=== PATIENT | female | born 1950 | race Caucasian/White ===

== ENCOUNTER → 2016-12-22 | Outpatient (CLI) | payer MEDICARE, OTHER ==
[2015-05-05 18:51] VITALS: BP 133/80
[~2016-12-22] MED LIST: ALBU18HF IH; ALLO100T PO; AMIODARONE PO; ASPI-482 PO; DILT180C29 PO; DRON400T PO; FLEC100T PO; FLUO40CA2 PO; FLUT1DIS3 IH; FURO20TA3 PO; HYDR-2679 PO; HYDR25TA9 PO; INDO75CA3 PO; LEVO50TA5 PO; LORA10TA3 PO; LOSA100T6 PO; PRAV80TA2 PO; RIVA10TA PO; TRIAMCINOLONE INH; XOPENEX0.63 MG/3 NEB
--- NOTE | 2016-12-22 14:08 | RAD ---
CT lumbar spine without contrast 12/22/2016 Clinical indication: Lower back pain. No known injury. Comparison: None. Technique: Multiple CT images of the lumbar spine without contrast. Coronal and sagittal reformations were obtained. PQRS Compliance Statement: One or more of the following individualized dose reduction techniques were utilized for this examination: 1. Automated exposure control 2. Adjustment of the mA and/or kV according to patient size 3. Use of iterative reconstruction technique Findings Lumbar spine: There are 5 nonrib-bearing vertebral bodies with the first considered L1 for the purposes of this dictation. There is 2 mm of retrolisthesis L3 on L4 and L5 on S1. Otherwise normal lumbar alignment. Vertebral body heights are maintained. There is multilevel lumbar disc degeneration greatest to moderate degree at L3-L4 with disc space narrowing, vacuum disc phenomenon and marginal osteophyte formation. Mild disc degeneration at L4-L5 with disc space narrowing, back and disc phenomenon and marginal osteophyte formation. Very mild disc degeneration at L5-S1. The paraspinous soft tissue tissues are unremarkable. Moderate calcified atheromatous disease of the visualized abdominal aorta. Segmental analysis: At T12-L1, no significant spinal canal or neuroforaminal narrowing. At L1-L2, no significant spinal canal or neural foraminal narrowing. At L2-L3, no significant spinal canal or neuroforaminal narrowing. At L3-L4, grade 1 retrolisthesis posterior disc osteophyte complex and mild facet hypertrophy resulting in mild spinal canal and mild bilateral neural foraminal narrowing. At L4-L5 bilateral facet hypertrophy and posterior disc bulging resulting in moderate spinal canal and moderate bilateral neural foraminal narrowing. At L5-S1, posterior disc bulging and bilateral facet hypertrophy resulting in mild spinal canal and moderate bilateral neural foraminal narrowing. Impression: 1. 2 mm retrolisthesis L3 on L4 and L5 on S1. 2. Disc degeneration and facet hypertrophy resulting in multilevel neural foraminal narrowing, to a moderate degree, bilaterally at L4-L5 and L5-S1. 3. Degenerative spinal canal narrowing estimated at moderate degree at L4-L5 and L5-S1. If clinically indicated, degree of bile canal and neural foraminal narrowing spinal canal and neural foraminal narrowing could be better evaluated by MR.
== END | disposition home or self-care (01) ==
LOC: CT 11:02
PROVIDERS: ATTEND Family Medicine
DX: M51.36 Other intervertebral disc degeneration, lumbar region (principal); M54.17 Radiculopathy, lumbosacral region
CPT/HCPCS: 72131

== ENCOUNTER → 2017-02-01 | Outpatient (CLI) | payer MEDICARE, OTHER ==
[2015-05-05 18:51] VITALS: BP 133/80
[~2017-02-01] MED LIST changes: +BUPIVACAINE MPF 0.25% 10 ML VIAL. ONE; +LIDOCAINE 1% PF 30 ML VIAL. ONE; +methylPREDNISolone ACETATE 80 MG/ML VIAL. ONE
== END | disposition home or self-care (01) ==
LOC: SURG 12:34
PROVIDERS: ATTEND Anesthesiology
DX: M47.816 Spondylosis without myelopathy or radiculopathy, lumbar region (principal); E78.00 Pure hypercholesterolemia, unspecified; G47.30 Sleep apnea, unspecified; M10.9 Gout, unspecified; Z87.39 Personal history of other diseases of the musculoskeletal system and connective tissue; Z96.653 Presence of artificial knee joint, bilateral; Z86.39 Personal history of other endocrine, nutritional and metabolic disease
CPT/HCPCS: 64493; 64494; J1040; J2001; J3490

== ENCOUNTER → 2017-02-22 | Outpatient (CLI) | payer MEDICARE, OTHER ==
[2015-05-05 18:51] VITALS: BP 133/80
[~2017-02-22] MED LIST changes: -BUPIVACAINE MPF 0.25% 10 ML VIAL. ONE; -LIDOCAINE 1% PF 30 ML VIAL. ONE; -methylPREDNISolone ACETATE 80 MG/ML VIAL. ONE
[2017-02-22 12:21] LABS: ALBUMIN 3.3 g/dL (3.4-5.0); ALBUMIN/GLOBULIN RATIO 0.8 (1.0-1.7); CALCIUM 8.6 mg/dL (8.5-10.1); CREATININE 1.4 mg/dL (0.6-1.0); GFR 37.5; TOTAL BILIRUBIN 0.4 mg/dL (0.2-1.0); TOTAL PROTEIN 7.4 g/dL (6.4-8.2)
[2017-02-22 12:27] LABS: POTASSIUM 2.8 mmol/L (3.5-5.1)
== END | disposition home or self-care (01) ==
LOC: LAB 11:39
PROVIDERS: ATTEND Nurse Practitioner
DX: E78.5 Hyperlipidemia, unspecified (principal)
CPT/HCPCS: 36415; 80053; 80061

== ENCOUNTER → 2017-02-23 | Outpatient (CLI) | payer MEDICARE, OTHER ==
[2015-05-05 18:51] VITALS: BP 133/80
[2017-02-23 11:01] LABS: CALCIUM 9.3 mg/dL (8.5-10.1); CREATININE 1.5 mg/dL (0.6-1.0); GFR 34.6; POTASSIUM 3.1 mmol/L (3.5-5.1)
== END | disposition home or self-care (01) ==
LOC: LAB 10:12
PROVIDERS: ATTEND Nurse Practitioner
DX: E87.6 Hypokalemia (principal)
CPT/HCPCS: 36415; 80048

== ENCOUNTER → 2017-02-24 | Outpatient (CLI) | payer MEDICARE, OTHER ==
[2015-05-05 18:51] VITALS: BP 133/80
[2017-02-24 10:33] LABS: CALCIUM 9.6 mg/dL (8.5-10.1); CREATININE 1.6 mg/dL (0.6-1.0); POTASSIUM 3.3 mmol/L (3.5-5.1)
[2017-02-24 10:35] LABS: GFR 32.2
== END | disposition home or self-care (01) ==
LOC: LAB 09:15
PROVIDERS: ATTEND Nurse Practitioner
DX: E87.5 Hyperkalemia (principal)
CPT/HCPCS: 36415; 80048

== ENCOUNTER → 2017-03-03 | Outpatient (CLI) | payer MEDICARE, OTHER ==
[2015-05-05 18:51] VITALS: BP 133/80
[2017-03-03 16:20] LABS: CALCIUM 8.8 mg/dL (8.5-10.1); CREATININE 1.4 mg/dL (0.6-1.0); GFR 37.5; POTASSIUM 3.3 mmol/L (3.5-5.1)
== END | disposition home or self-care (01) ==
LOC: LAB 11:20
PROVIDERS: ATTEND Nurse Practitioner
DX: R60.0 Localized edema (principal)
CPT/HCPCS: 36415; 80048

== ENCOUNTER → 2017-03-15 | Outpatient (CLI) | payer MEDICARE, OTHER ==
[2015-05-05 18:51] VITALS: BP 133/80
[~2017-03-15] MED LIST changes: +BUPIVACAINE MPF 0.25% 10 ML VIAL. ONE; +LIDOCAINE 1% PF 30 ML VIAL. ONE; +methylPREDNISolone ACETATE 80 MG/ML VIAL. ONE
== END | disposition home or self-care (01) ==
LOC: SURG 13:06
PROVIDERS: ATTEND Anesthesiology
DX: M47.816 Spondylosis without myelopathy or radiculopathy, lumbar region (principal); I10 Essential (primary) hypertension; I48.91 Unspecified atrial fibrillation; M19.91 Primary osteoarthritis, unspecified site; E07.9 Disorder of thyroid, unspecified; Z96.653 Presence of artificial knee joint, bilateral
CPT/HCPCS: 64493; 64494; J1040; J2001; J3490

== ENCOUNTER → 2017-03-25 | Outpatient (CLI) | payer MEDICARE, OTHER ==
[2015-05-05 18:51] VITALS: BP 133/80
[~2017-03-25] MED LIST changes: -BUPIVACAINE MPF 0.25% 10 ML VIAL. ONE; -LIDOCAINE 1% PF 30 ML VIAL. ONE; -methylPREDNISolone ACETATE 80 MG/ML VIAL. ONE
[2017-03-26 02:06] LABS: RHEUMATOID FACTOR 10.5 IU/mL (0.0-13.9)
[2017-03-28 18:06] LABS: ANA INTERP Negative (.)
[2017-03-29 11:13] LABS: ALBUM 3.6 g/dL (2.9-4.4); ALPHA 1 0.2 g/dL (0.0-0.4); ALPHA 2 1.1 g/dL (0.4-1.0); GAMMA 1.1 g/dL (0.4-1.8); SPEP AG RATIO 1.1 (0.7-1.7)
== END | disposition home or self-care (01) ==
LOC: LAB 15:04
DX: G60.9 Hereditary and idiopathic neuropathy, unspecified (principal)
CPT/HCPCS: 36415; 82607; 82746; 84165; 86334; 86431

== ENCOUNTER → 2017-05-13 | Outpatient (CLI) | payer MEDICARE, OTHER ==
[2015-05-05 18:51] VITALS: BP 133/80
[~2017-05-13] MED LIST changes: +ATROPINE 1 MG/10 ML DISP.SYRIN ONE; +BUPIVACAINE MPF 0.25% 10 ML VIAL. ONE; +DEXAMETHASONE SOD PHOS 4 MG/ML VIAL ONE; +EPINEPHrine SYRINGE 1 MG/10 ML SYRINGE ONE; +FLUMAZENIL 0.5 MG/5 ML VIAL. IV ONE; +GLUCAGON,HUMAN RECOMBINANT 1 MG KIT. ONE; +IV RINGERS SOLUTION,LACTATED 1,000 ML IV ONE; +LIDOCAINE 2% PF Vial for OR 5 ML VIAL. ONE; +MIDAZOLAM HCL PF 2 MG/2 ML VIAL. ONE; +NALOXONE 0.4 MG/ML VIAL. ONE; +diphenhydrAMINE 50 MG/ML VIAL ONE
== END | disposition home or self-care (01) ==
LOC: SURG 07:22
PROVIDERS: ATTEND Anesthesiology Pain Medicine
DX: M47.816 Spondylosis without myelopathy or radiculopathy, lumbar region (principal); I10 Essential (primary) hypertension; E03.9 Hypothyroidism, unspecified; Z96.659 Presence of unspecified artificial knee joint
CPT/HCPCS: 64635; 64636; J1100; J2250; J3010; J3490; J7120; 99152; J0171; J0461; J1200; J1610; J2310; J2001

== ENCOUNTER → 2017-06-09 | Outpatient (CLI) | payer MEDICARE, OTHER ==
[2015-05-05 18:51] VITALS: BP 133/80
[~2017-06-09] MED LIST changes: -ATROPINE 1 MG/10 ML DISP.SYRIN ONE; -EPINEPHrine SYRINGE 1 MG/10 ML SYRINGE ONE; -FLUMAZENIL 0.5 MG/5 ML VIAL. IV ONE; -GLUCAGON,HUMAN RECOMBINANT 1 MG KIT. ONE; +LIDOCAINE 1% PF 30 ML VIAL. ONE; -LIDOCAINE 2% PF Vial for OR 5 ML VIAL. ONE; -NALOXONE 0.4 MG/ML VIAL. ONE; -diphenhydrAMINE 50 MG/ML VIAL ONE
== END | disposition home or self-care (01) ==
LOC: SURG 07:40
PROVIDERS: ATTEND Anesthesiology Pain Medicine
DX: M12.88 Other specific arthropathies, not elsewhere classified, other specified site (principal); I11.0 Hypertensive heart disease with heart failure; I50.9 Heart failure, unspecified; E03.8 Other specified hypothyroidism; Z96.659 Presence of unspecified artificial knee joint; Z79.899 Other long term (current) drug therapy; E11.9 Type 2 diabetes mellitus without complications; I48.91 Unspecified atrial fibrillation; E78.00 Pure hypercholesterolemia, unspecified; G47.30 Sleep apnea, unspecified; M10.9 Gout, unspecified; M19.90 Unspecified osteoarthritis, unspecified site
CPT/HCPCS: 64635; 64636; 99213; J1100; J2001; J2250; J3010; J3490; J7120; 99152

== ENCOUNTER → 2017-06-10 | Outpatient (CLI) | payer MEDICARE, OTHER ==
[2015-05-05 18:51] VITALS: BP 133/80
[~2017-06-10] MED LIST changes: -BUPIVACAINE MPF 0.25% 10 ML VIAL. ONE; -DEXAMETHASONE SOD PHOS 4 MG/ML VIAL ONE; -IV RINGERS SOLUTION,LACTATED 1,000 ML IV ONE; -LIDOCAINE 1% PF 30 ML VIAL. ONE; -MIDAZOLAM HCL PF 2 MG/2 ML VIAL. ONE
[2017-06-10 12:16] LABS: CALCIUM 9.5 mg/dL (8.5-10.1); CREATININE 1.9 mg/dL (0.6-1.0); GFR 26.4
[2017-06-10 12:18] LABS: POTASSIUM 3.4 mmol/L (3.5-5.1)
== END | disposition home or self-care (01) ==
LOC: LAB 11:36
PROVIDERS: ATTEND Nurse Practitioner
DX: E87.6 Hypokalemia (principal); I10 Essential (primary) hypertension; E11.9 Type 2 diabetes mellitus without complications
CPT/HCPCS: 36415; 80048

== ENCOUNTER → 2017-06-23 | Outpatient (CLI) | payer MEDICARE, OTHER ==
[2015-05-05 18:51] VITALS: BP 133/80
== END | disposition home or self-care (01) ==
LOC: SURG 10:12
PROVIDERS: ATTEND Anesthesiology Pain Medicine
DX: M12.88 Other specific arthropathies, not elsewhere classified, other specified site (principal); I10 Essential (primary) hypertension
CPT/HCPCS: 99213

== ENCOUNTER → 2017-07-01 | Outpatient (CLI) | payer MEDICARE, OTHER ==
[2015-05-05 18:51] VITALS: BP 133/80
[2017-07-01 13:17] LABS: CALCIUM 9.1 mg/dL (8.5-10.1); CREATININE 1.7 mg/dL (0.6-1.0); POTASSIUM 3.5 mmol/L (3.5-5.1)
== END | disposition home or self-care (01) ==
LOC: LAB 12:02
PROVIDERS: ATTEND Nurse Practitioner
DX: I11.0 Hypertensive heart disease with heart failure (principal); I50.9 Heart failure, unspecified; Z72.0 Tobacco use
CPT/HCPCS: 36415; 80048

== ENCOUNTER → 2017-08-09 | Outpatient (CLI) | payer MEDICARE, OTHER ==
[2015-05-05 18:51] VITALS: BP 133/80
[~2017-08-09] MED LIST changes: +IOHEXOL 240 MG/ML 50ML VIAL. ONE
--- NOTE | 2017-08-09 12:56 | RAD ---
EXAM: Abdomen and pelvis CT without intravenous contrast. HISTORY: Hernia. TECHNIQUE: Computed tomographic images of the abdomen and pelvis were obtained without intravenous contrast. Multiplanar reformatting was performed. *One or more of the following individualized dose reduction techniques were utilized for this examination: 1. Automated exposure control. 2. Adjustment of the mA and/or kV according to patient size. 3. Use of iterative reconstruction technique. COMPARISON: None. FINDINGS: Evaluation of the lower thorax demonstrates bilateral posterior dependent and basilar atelectasis. There is a 2 mm nodular opacity within the lingula, benign in appearance. There is a 2 mm nodular opacity within the right lung base, also benign in appearance. There is callus location of the aortic valve and coronary arteries. There is mild hepatomegaly. There is cholelithiasis. The pancreas, spleen and adrenal glands are unremarkable. The kidneys are unremarkable. The urinary bladder is unremarkable. There is an enlarged uterus containing multiple calcifications likely due to fibroids. There is a mass along the right lateral aspect of the uterine fundus which appears separate from the ovary and is likely a subserosal fibroid measuring approximately 5.0 cm. There is sigmoid diverticulosis. There is aortobiiliac atherosclerosis. No pathologically enlarged lymph node is seen. There are degenerative changes throughout the lumbar spine. No suspicious osseous lesion is seen. No hernia is seen. IMPRESSION: 1. No evidence of an abdominal or pelvic hernia. 2. Enlarged uterus containing multiple calcifications likely due to degenerating fibroids. There is a 5.0 cm mass along the right lateral uterine fundus likely due to a subserosal fibroid. This can be better assessed with a pelvic sonogram. 3. Sigmoid diverticulosis. 4. Cholelithiasis. 5. Mild hepatomegaly. Electronically signed by: Lili Cohen MD (08/09/2017 12:53 PM) [place] [id number]
== END | disposition home or self-care (01) ==
LOC: CT 10:13
PROVIDERS: ATTEND Nurse Practitioner Family
DX: K57.30 Diverticulosis of large intestine without perforation or abscess without bleeding (principal); K80.20 Calculus of gallbladder without cholecystitis without obstruction; N85.2 Hypertrophy of uterus; R16.0 Hepatomegaly, not elsewhere classified
CPT/HCPCS: 74176; Q9966

== ENCOUNTER → 2017-11-25 | Outpatient (CLI) | payer MEDICARE, OTHER ==
[2015-05-05 18:51] VITALS: BP 133/80
[~2017-11-25] MED LIST changes: -IOHEXOL 240 MG/ML 50ML VIAL. ONE
--- NOTE | 2017-11-25 22:28 | RAD ---
EXAM: Left elbow, 3 views. HISTORY: Pain. COMPARISON: None. FINDINGS: 3 views of the left elbow are obtained. There is no acute fracture, dislocation or subluxation. There is spurring along the trochlea. There is no elbow effusion. There is soft tissue swelling overlying the olecranon. IMPRESSION: 1. Mild left elbow osteoarthritis. 2. Soft tissue swelling overlying the olecranon. The imaging appearance favors olecranon bursitis. Electronically signed by: Lili Cohen MD (11/25/2017 4:04 PM) [facility]
== END | disposition home or self-care (01) ==
LOC: DXRAD 09:51
PROVIDERS: ATTEND Orthopaedic Surgery Sports Medicine
DX: M19.022 Primary osteoarthritis, left elbow (principal); M79.89 Other specified soft tissue disorders; I11.0 Hypertensive heart disease with heart failure; I50.9 Heart failure, unspecified; E78.5 Hyperlipidemia, unspecified; E78.00 Pure hypercholesterolemia, unspecified; E03.9 Hypothyroidism, unspecified
CPT/HCPCS: 73070

== ENCOUNTER 2018-11-13 16:56 | Emergency (ER) | payer MEDICARE, OTHER ==
[~2018-11-13] VITALS: Ht 167.6 cm; Wt 155.6 kg
[~2018-11-13 16:56] MED LIST changes: -ALBU18HF IH; +ALBU2.5V8 IH; +HYDR-2145 PO; -HYDR25TA9 PO; +LOSA100T14 PO; -LOSA100T6 PO
[2018-11-13] MEDS ORDERED: dilTIAZem 25 MG/5 ML VIAL IVP ONE (17:15)
[2018-11-13] MEDS ORDERED: IV NORMAL SALINE 1,000ML 1,000 ML IV SCH (17:15)
[2018-11-13 17:49] LABS: BASO % 1 % (0-3); EOS # 0.2 x10^3/uL (0.0-0.7); EOS % 4 % (0-3); HEMATOCRIT 44.9 % (36.0-47.0); HEMOGLOBIN 15.1 g/dL (12.0-15.5); LYMPH # 2.5 x10^3/uL (1.0-4.8); LYMPH % 39 % (24-48); MEAN CORPUSCULAR HEMOGLOBIN 30 pg (25-35); MEAN CORPUSCULAR HGB CONC 34 g/dL (31-37); MEAN CORPUSCULAR VOLUME 89 fL (79-100); MONO # 0.6 x10^3/uL (0.0-1.1); MONO % 9 % (0-9); NEUT # 3.1 x10^3uL (1.8-7.7); NEUT % 48 % (31-73); PLATELET COUNT 228 x10^3/uL (140-400); RED BLOOD COUNT 5.05 x10^6/uL (3.50-5.40); RED CELL DISTRIBUTION WIDTH 15.3 % (11.5-14.5); WHITE BLOOD COUNT 6.5 x10^3/uL (4.0-11.0)
--- NOTE | 2018-11-13 18:04 | PHYS DOC ---
Past History Past Medical History: A-Fib, Anxiety, Arthritis, Asthma, Depression, High Cholesterol, Hypertension, Other (TRUPTI MCCORMICK MD) Past Surgical History: Appendectomy, Knee Replacement, Other (TRUPTI MCCORMICK MD) Alcohol Use: Rarely Drug Use: None (TRUPTI MCCORMICK MD) Adult General Chief Complaint Chief Complaint: RAPID HEART RATE HPI HPI Patient is a 68 year old female who presents with palpitations. Patient was se nt to the emergency department from her primary physician's office after being found to have an abnormal EKG. Patient noted to have A. fib with RVR at Dr. Newton's office. Was sent to the emergency department for further evaluation. Denies chest pain or lightheadedness. Does admit to history of A. fib but states that this was resolved approximately 4-5 years ago with electri juan alberto cardioversion. States that she is on Xarelto daily but is not on any heart medications currently. Follows with Dr. Ontiveros of cardiology. Has not felt recently ill or short of breath. (TRUPTI MCCORMICK MD) Review of Systems Review of Systems Constitutional: Denies fever or chills [] Eyes: Denies change in visual acuity, redness, or eye pain [] HENT: Denies nasal congestion or sore throat [] Respiratory: Denies cough or shortness of breath [] Cardiovascular: Palpitations, denies chest pain or edema[] GI: Denies abdominal pain, nausea, vomiting, bloody stools or diarrhea [] : Denies dysuria or hematuria [] Musculoskeletal: Denies back pain or joint pain [] Integument: Denies rash or skin lesions [] Neurologic: Denies headache, focal weakness or sensory changes [] All other systems were reviewed and found to be within normal limits, except as documented in this note. (TRUPTI MCCORMICK MD) Current Medications Current Medications Current Medications Medications (Trade) Dose Ordered Sig/Ashish Start Time Stop Time Status Last Admin Dose Admin Diltiazem HCl (Cardizem Iv Push) 20 mg 1X ONCE 11/13/18 17:15 11/13/18 17:27 DC Sodium Chloride 1,000 ml @ 125 mls/hr Q8H 11/13/18 17:15 11/14/18 01:14 (TRUPTI MCCORMICK MD) Allergies Allergies Allergies Coded Allergies Type Severity Reaction Last Updated Verified No Known Drug Allergies 05/05/15 No (TRUPTI MCCORMICK MD) Physical Exam Physical Exam Constitutional: Well developed, well nourished, no acute distress, non-toxic appearance. [] HENT: Normocephalic, atraumatic, bilateral external ears normal, oropharynx moist, no oral exudates, nose normal. [] Eyes: PERRLA, EOMI, conjunctiva normal, no discharge. [] Neck: Normal range of motion, no tenderness, supple, no stridor. [] Cardiovascular: Tachycardia, irregular rhythm, no murmur[] Lungs & Thorax: Bilateral breath sounds clear to auscultation [] Abdomen: Bowel sounds normal, soft, no tenderness, no masses, no pulsatile masses. [] Skin: Warm, dry, no erythema, no rash. [] Back: No tenderness, no CVA tenderness. [] Extremities: No tenderness, no cyanosis, no clubbing, ROM intact, no edema. [] Neurologic: Alert and oriented X 3, normal motor function, normal sensory function, no focal deficits noted. [] (TRUPTI MCCORMICK MD) Current Patient Data Lab Results Laboratory Tests Test 11/13/18 17:27 White Blood Count 6.5 x10^3/uL (4.0-11.0) Red Blood Count 5.05 x10^6/uL (3.50-5.40) Hemoglobin 15.1 g/dL (12.0-15.5) Hematocrit 44.9 % (36.0-47.0) Mean Corpuscular Volume 89 fL (79-100) Mean Corpuscular Hemoglobin 30 pg (25-35) Mean Corpuscular Hemoglobin Concent 34 g/dL (31-37) Red Cell Distribution Width 15.3 % (11.5-14.5) H Platelet Count 228 x10^3/uL (140-400) Neutrophils (%) (Auto) 48 % (31-73) Lymphocytes (%) (Auto) 39 % (24-48) Monocytes (%) (Auto) 9 % (0-9) Eosinophils (%) (Auto) 4 % (0-3) H Basophils (%) (Auto) 1 % (0-3) Neutrophils # (Auto) 3.1 x10^3uL (1.8-7.7) Lymphocytes # (Auto) 2.5 x10^3/uL (1.0-4.8) Monocytes # (Auto) 0.6 x10^3/uL (0.0-1.1) Eosinophils # (Auto) 0.2 x10^3/uL (0.0-0.7) Basophils # (Auto) 0.0 x10^3/uL (0.0-0.2) (TRUPTI MCCORMICK MD) EKG EKG EKG #1 at 1710 interpreted by me: Rate 117, A. fib with rapid ventricular response, leftward axis, no acute ST/T-wave abnormalities present. EKG #2 at 1757 interpreted by me after administration of IV bolus of Cardizem: Heart rate 66, atrial fibrillation, tachycardia resolved, leftward axis, no acute ST/T-wave abnormalities present[] (TRUPTI MCCORMICK MD) Radiology/Procedures Radiology/Procedures One view AP chest x-ray interpreted by me: Cardiomegaly present, no pulmonary infiltrates or effusions[] (TRUPTI MCCORMICK MD) Course & Med Decision Making Course & Med Decision Making Pertinent Labs and Imaging studies reviewed. (See chart for details) Patient missed her dose 20 mg of IV Cardizem in the emergency department with achievement of rate control, however patient continues to have atrial fibrill ation at this time. Lab work is pending. Care of patient will be signed out to oncoming physician, Dr. Judge, at 0600.[] (TRUPTI MCCORMICK MD) Course & Med Decision Making Patient given IV Cardizem with controlled rate. Patient remains in A. fib. Patient home medications reviewed. Patient has inadvertently taken herself off of Coreg. She is scheduled to take 25 mg twice daily, but has not taken it for weeks. Patient's belief is that she is prescribed Coreg for blood pressure and that she no longer needed it as her blood pressure has been controlled.. Case reviewed with Dr. Newton who recommends discussing case with patient's distribution coordinator or transferred to [facility]. Case reviewed with distribution coordinator building construction teacher for Dr. Ontiveros. Given the patient is asymptomatic and on Xarelto and that the rate is currently controlled, recommendations are to follow-up with distribution coordinator office in the morning. Patient given home dose of Coreg prior to departure. Return cautions reviewed. (JUDGE,PERICO DO) Dragon Disclaimer Dragon Disclaimer This electronic medical record was generated, in whole or in part, using a voice recognition dictation system. (TRUPTI MCCORMICK MD) Departure Departure: Impression: Primary Impression: Atrial fibrillation with RVR Referrals: RILEY NEWTON MD (PCP) TRUPTI MCCORMICK MD Nov 13, 2018 18:04 PERICO JUDGE DO Nov 13, 2018 21:06
[2018-11-13 18:14] LABS: ALBUMIN 3.6 g/dL (3.4-5.0); CALCIUM 9.6 mg/dL (8.5-10.1); CREATININE 1.1 mg/dL (0.6-1.0); GFR 49.4; MAGNESIUM 2.2 mg/dL (1.8-2.4); POTASSIUM 3.5 mmol/L (3.5-5.1); TOTAL BILIRUBIN 0.6 mg/dL (0.2-1.0); TOTAL PROTEIN 7.3 g/dL (6.4-8.2)
[2018-11-13] MEDS ORDERED: FUROSEMIDE 40 MG/4 ML VIAL IVP ONE (18:45)
[2018-11-13 20:23] LABS: BACTERIA,URINE 0 /HPF (0-FEW); BILIRUBIN,URINE NEG (NEG); CLARITY,URINE HAZY; COLOR,URINE YELLOW; GLUCOSE,URINE NEG (NEG); NITRITE,URINE NEG (NEG); RBC,URINE 0 /HPF (0-2); SQUAMOUS EPITHELIAL CELL,UR OCC /LPF; UROBILINOGEN,URINE 0.2 mg/dL (0.2 mg/dL); WBC,URINE OCC /HPF (0-4)
[2018-11-13 21:30] VITALS: BP 142/82
--- NOTE | 2018-11-14 05:00 | RAD ---
Chest radiograph 11/13/2018 5:12 PM INDICATION: Tachycardia COMPARISON: May 05, 2015 TECHNIQUE: Portable upright frontal view of the chest is provided. FINDINGS: The cardiomediastinal silhouette is within normal limits. There are no pleural effusions. There is no pulmonary vascular congestion. There is no pneumothorax. Patchy opacity at the left lung base may represent subsegmental atelectasis versus infiltrate. No significant osseous abnormality is identified. IMPRESSION: Patchy opacity at the left lung base may represent subsegmental atelectasis versus infiltrate. Electronically signed by: Nayeli Jefferson MD (11/14/2018 4:57 AM) [facility]
--- NOTE | 2018-11-14 06:22 | EKG ---
[address] [address] Test Date: 2018-11-13 Test Time: 19:52:48 Pat Name: YUKI WESTON Department: Room: Gender: F [employer]ot Knitting Machine Operator: MILTON : 1950 Requested By: TRUPTI MCCORMICK Order Number: [id number] Reading MD: Measurements Intervals [place] Rate: 73 P: CA: QRS: -14 QRSD: 74 T: 14 QT: 412 QTc: 458 Interpretive Statements IRREGULAR RHYTHM, NO P-WAVE FOUND LEFTWARD AXIS OTHERWISE NORMAL ECG RI6.01 Compared to ECG 05/05/2015 11:53:09 Left-axis deviation now present Sinus rhythm no longer present
== END 2018-11-13 21:30 | disposition home or self-care (01) ==
LOC: ER 16:56
DX: I48.2 Chronic atrial fibrillation (principal); F41.9 Anxiety disorder, unspecified; M19.90 Unspecified osteoarthritis, unspecified site; J45.909 Unspecified asthma, uncomplicated; E78.00 Pure hypercholesterolemia, unspecified; I10 Essential (primary) hypertension
CPT/HCPCS: 36415; 71045; 80053; 81001; 82553; 83690; 83735; 83880; 84484; 85025; 85610; 85730; 87086; 93005; 96374; 96375; 99285; J1940; J3490; J7030

== ENCOUNTER → 2019-06-18 | Outpatient (CLI) | payer MEDICARE, OTHER ==
[2019-06-18 10:56] LABS: ALBUMIN 3.7 g/dL (3.4-5.0); CALCIUM 9.3 mg/dL (8.5-10.1); POTASSIUM 3.8 mmol/L (3.5-5.1); TOTAL BILIRUBIN 0.7 mg/dL (0.2-1.0); TOTAL PROTEIN 7.5 g/dL (6.4-8.2)
== END | disposition home or self-care (01) ==
LOC: LAB 09:09
PROVIDERS: ATTEND Nurse Practitioner
DX: E78.5 Hyperlipidemia, unspecified (principal)
CPT/HCPCS: 36415; 80053; 80061; 82306

== ENCOUNTER → 2019-08-21 | Outpatient (CLI) | payer MEDICARE, OTHER | END | disposition home or self-care (01) | LOC: LAB 11:30 | PROVIDERS: ATTEND Nurse Practitioner | DX: E78.5 Hyperlipidemia, unspecified (principal) | CPT/HCPCS: 36415; 80061 ==

== ENCOUNTER → 2019-12-04 | Outpatient (CLI) | payer MEDICARE, OTHER ==
--- NOTE | 2019-12-13 17:18 | RAD ---
EXAM: BILATERAL DIGITAL 3D SCREENING MAMMOGRAPHY. HISTORY: Routine mammographic screening. TECHNIQUE: Bilateral digital 3D and tomographic images were obtained in CC and MLO projections. Computer-aided detection was applied. COMPARISON: 11/08/2018. COMPOSITION: B. There are scattered areas of fibroglandular density. FINDINGS: There are no suspicious masses, microcalcifications or architectural distortion. The parenchymal pattern is stable. Scattered and skin calcifications are benign. BI-RADS CATEGORY 2: Benign. RECOMMENDATION: 1. Routine screening mammography in one year. If mammography demonstrates dense breast tissue (heterogenously dense or extremely dense, category C or D), which could hide abnormalities, and if other risk factors for breast cancer have been identified, supplemental screening tests that may be suggested by the ordering physician may be of benefit. Dense breast tissue, in and of itself, is a relatively common condition. Therefore, this information is not provided to cause undue concern, but rather to raise awareness and to promote discussion with the referring physician regarding the presence of other risk factors, in addition to dense breast tissue. The results of this mammography examination is provided to the patient and referring physician. The patient should contact their referring physician if any questions or concerns exist regarding this report. PQRS compliance statement - Patient information was entered into a reminder system with a target due date for the next mammogram. "Our facility is accredited by the [employer] Mammography Program." Electronically signed by: Lucina Hodgson MD (12/13/2019 5:15 PM) [id number]
== END ==
LOC: MAMMO 13:15
PROVIDERS: ATTEND Family Medicine
DX: Z12.31 Encounter for screening mammogram for malignant neoplasm of breast (principal)
CPT/HCPCS: 77063; 77067

== ENCOUNTER → 2020-01-18 | Outpatient (CLI) | payer MEDICARE, OTHER ==
--- NOTE | 2020-01-18 13:54 | RAD ---
CT head and maxillofacial without contrast Indication: Fall Technique: Noncontrast CT imaging was performed of the head and maxillofacial region, multiplanar reconstruction images submitted. One or more of the following individualized dose reduction techniques were utilized for this examination: 1. Automated exposure control 2. Adjustment of the mA and/or kV according to patient size 3. Use of iterative reconstruction technique. Comparison: None Head: Findings: No acute intracranial hemorrhage is identified. There is fairly severe ill-defined low-density of the supratentorial parenchyma bilaterally. There is no midline shift or intra-axial mass effect. There is atherosclerotic calcification of the bilateral carotid siphons and left intradural vertebral artery. Ventricles, sulci, and cisterns are within normal limits in size and configuration. IMPRESSION: 1. There is no evidence of acute intracranial hemorrhage. 2. Fairly severe ill-defined low-density of the supratentorial parenchyma bilaterally is nonspecific although more commonly due to chronic microvascular ischemic disease in a patient this age. Maxillofacial CT FINDINGS: No acute maxillofacial fracture is identified. There are no air-fluid levels of the paranasal sinuses. Mastoid air cells are aerated. There is ossification of the posterior and anterior arches of C1 with corticated margins, diastasis of the bones about 2 mm of anterior arch and about 6 mm of the posterior arch. There is facet degenerative change of visualized cervical spine. There is atherosclerotic calcification of the carotid arteries in the neck bilaterally. There is 0.7 cm hypodense nodule right thyroid gland, possible more solid-appearing nodule posteriorly by 1.3 cm. IMPRESSION: 1. No acute maxillofacial fracture is identified. 2. 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 3. There are right thyroid nodules. Electronically signed by: Cheko Maher MD (01/18/2020 1:51 PM) [facility]
== END | disposition home or self-care (01) ==
LOC: CT 13:20
PROVIDERS: ATTEND Family Medicine
DX: I67.82 Cerebral ischemia (principal); E04.2 Nontoxic multinodular goiter; I65.23 Occlusion and stenosis of bilateral carotid arteries; W01.0XXA Fall on same level from slipping, tripping and stumbling without subsequent striking against object, initial encounter; Y93.89 Activity, other specified; Y92.89 Other specified places as the place of occurrence of the external cause; Y99.8 Other external cause status
CPT/HCPCS: 70450; 70486

== ENCOUNTER → 2020-03-06 | Outpatient (CLI) | payer MEDICARE, OTHER ==
[2020-03-06 11:54] LABS: ALBUMIN 3.6 g/dL (3.4-5.0); ALBUMIN/GLOBULIN RATIO 0.9 (1.0-1.7); CALCIUM 9.6 mg/dL (8.5-10.1); GFR 54.8; POTASSIUM 3.7 mmol/L (3.5-5.1); TOTAL BILIRUBIN 0.5 mg/dL (0.2-1.0); TOTAL PROTEIN 7.5 g/dL (6.4-8.2)
== END ==
LOC: LAB 10:40
PROVIDERS: ATTEND Nurse Practitioner
DX: E78.5 Hyperlipidemia, unspecified (principal)
CPT/HCPCS: 36415; 80053; 80061

== ENCOUNTER → 2021-01-02 | Outpatient (CLI) | payer MEDICARE, OTHER ==
[~2021-01-02] MED LIST changes: -DRON400T PO; +DRON400T6 PO
--- NOTE | 2021-01-02 10:58 | RAD ---
DG UGI W/O KUB Indication: Reason: n/v Comparison: None. Technique: A preliminary sales service rep radiograph of the abdomen was first obtained. Then utilizing air contr ast technique with both single contrast barium preparations, evaluation of the distal esophagus, stom ach, and duodenum was performed in the upright, supine, and prone positions. Fluoroscopic time: 2.2 minutes. Number of fluoroscopic images: 21 Findings: Normal progression of contrast into the gastroesophageal junction widely patent. Postoperative change s gastric bypass. Widely patent gastrojejunostomy. Minimal retention of contrast within the gastric r emnant. Distal jejunal anastomosis is patent. There is a hiatal hernia on prone imaging with the callie adrianne remnant sliding into the chest. Normal esophageal motility. No stenosis or obstruction. IMPRESSION: 1. Hiatal hernia with prone imaging involving the gastric remnant. Patent gastrojejunostomy. Electronically signed by: Rodolfo Dixon DO (01/02/2021 10:56 AM) [id number]
== END ==
LOC: DXRAD 08:47
PROVIDERS: ATTEND Internal Medicine Gastroenterology
DX: K44.9 Diaphragmatic hernia without obstruction or gangrene (principal); R11.2 Nausea with vomiting, unspecified; Z98.890 Other specified postprocedural states
CPT/HCPCS: 74240